=== PATIENT | male | born 1990 | race Caucasian/White ===

== ENCOUNTER → 2018-05-02 | Outpatient (REF) | payer BC | LOC: LAB 11:59 → EDSTATUS 12:03 | DX: Z00.00 Encounter for general adult medical examination without abnormal findings (principal); R53.83 Other fatigue ==

== ENCOUNTER → 2018-05-02 | Outpatient (CLI) | payer BC | LOC: RAD 14:03 | DX: R10.9 Unspecified abdominal pain (principal); M89.8X1 Other specified disorders of bone, shoulder ==